=== PATIENT | female | born 1985 | race Caucasian/White ===

== ENCOUNTER 2018-07-31 11:35 | Emergency (ER) | payer OTHER ==
[~2018-07-31] VITALS: Ht 152.4 cm; Wt 46.7 kg
== END 2018-07-31 12:35 | disposition home or self-care (01) ==
LOC: ER 11:35
DX: S01.121A Laceration with foreign body of right eyelid and periocular area, initial encounter (principal); W18.09XA Striking against other object with subsequent fall, initial encounter; Y93.89 Activity, other specified; Y92.89 Other specified places as the place of occurrence of the external cause; Y99.8 Other external cause status